=== PATIENT | female | born 1980 | race Caucasian/White ===

== ENCOUNTER 2016-10-14 15:07 | Inpatient (IN) | payer MEDICAID ==
[~2016-10-14] VITALS: Ht 165.1 cm; Wt 83.4 kg
[~2016-10-14 15:07] MED LIST: CIPR-173 PO
[2016-10-14 15:57] LABS: Basophils # (auto) 0 uL; Basophils % (auto) 0.4 % (0.0-2.0); Eosinophils # (auto) 0.1 uL; Eosinophils % (auto) 1.2 % (0.0-7.0); Hematocrit 45.2 % (36.0-46.0); Hemoglobin 14.9 g/dL (12.2-16.2); Lymphocytes # (auto) 2.6 uL; Mean Corpuscular Hemoglobin 29.5 pg (28.0-32.0); Mean Corpuscular Hgb Conc. 32.9 g/dL (32.0-36.0); Mean Corpuscular Volume 89.8 fL (80.0-100.0); Mean Platelet Volume 8.5 fL (7.4-10.4); Monocytes # (auto) 0.4 uL; Monocytes % (auto) 3.8 % (0.0-12.0); Neutrophils # (auto) 6.2 uL; Neutrophils % (auto) 66.6 % (37.0-80.0); Platelet Count (auto) 353 10^3/uL (140-450); Red Cell Distribution Width 13.1 % (11.6-16.0); White Blood Cell 9.3 10^3/uL (4.4-10.8)
[2016-10-14 16:39] LABS: Albumin 4.2 g/dL (3.4-5.0); BUN/Creatinine Ratio 17.3; Bilirubin, Total 0.4 mg/dL (0.2-1.0); Potassium 3.7 mmol/L (3.5-5.1); Total Protein 7.8 g/dL (6.4-8.2)
[2016-10-14] MEDS ORDERED: SODIUM CHLORIDE 0.9% 1,000 ML IV ONE (21:18)
[2016-10-14] MEDS ORDERED: MORPHINE SULFATE 4 MG/ML SYRG IV ONE (21:30)
[2016-10-14] MEDS ORDERED: ONDANSETRON HCL 4 MG/2 ML VIAL IV ONE (21:30)
[2016-10-14] MEDS ORDERED: NITROFURANTOIN (MONO) 100 mg CAP PO ONE (22:00)
[2016-10-14] MEDS: SODIUM CHLORIDE 0.9% 1,000 ML IV SCH (23:07)
[2016-10-14] MEDS ORDERED: HYDROmorphone HCL 2 MG/ML VL IV ONE (23:30)
[2016-10-14] MEDS: ONDANSETRON HCL 4 MG/2 ML VIAL IV PRN (23:35)
[2016-10-15] VITALS (8 sets, daily range): BP systolic 97–142; BP diastolic 57–88
[2016-10-15] MEDS: ONDANSETRON HCL 4 MG/2 ML VIAL IV PRN ×3 (01:57→22:18)
[2016-10-15] MEDS: MORPHINE SULF INJ 2 MG/ML SYRINGE 1ML IV PRN ×4 (03:44→22:18)
[2016-10-15 05:45] LABS: Basophils # (auto) 0 uL; Basophils % (auto) 0.6 % (0.0-2.0); Eosinophils # (auto) 0.1 uL; Eosinophils % (auto) 1.1 % (0.0-7.0); Hematocrit 38.3 % (36.0-46.0); Hemoglobin 12.4 g/dL (12.2-16.2); Lymphocytes % (auto) 37.5 % (10.0-50.0); Mean Corpuscular Hemoglobin 29.3 pg (28.0-32.0); Mean Corpuscular Hgb Conc. 32.5 g/dL (32.0-36.0); Mean Corpuscular Volume 90.2 fL (80.0-100.0); Mean Platelet Volume 8.7 fL (7.4-10.4); Monocytes # (auto) 0.4 uL; Monocytes % (auto) 5.5 % (0.0-12.0); Neutrophils # (auto) 4.5 uL; Neutrophils % (auto) 55.3 % (37.0-80.0); Platelet Count (auto) 278 10^3/uL (140-450); Red Cell Distribution Width 12.6 % (11.6-16.0); White Blood Cell 8.1 10^3/uL (4.4-10.8)
[2016-10-15 06:04] LABS: Albumin 3.1 g/dL (3.4-5.0); BUN/Creatinine Ratio 14.7; Calcium 7.5 mg/dL (8.5-10.1); Potassium 3.4 mmol/L (3.5-5.1)
[2016-10-15 06:07] LABS: Bilirubin, Total 0.5 mg/dL (0.2-1.0); Total Protein 5.9 g/dL (6.4-8.2)
[2016-10-15] MEDS ORDERED: DIVA250T51 PO (06:40)
[2016-10-15] MEDS ORDERED: VERA120T6 PO (06:40)
[2016-10-15] MEDS: SODIUM CHLORIDE 0.9% 1,000 ML IV SCH ×3 (07:52→23:09)
[2016-10-15] MEDS ORDERED: ONDANSETRON HCL 4 MG/2 ML VIAL ONE (08:32)
[2016-10-15] MEDS ORDERED: cefTRIAXone 1GM/50ML D5W 50 ML IV ONE (10:00)
[2016-10-15] MEDS: VALPROATE SOD 250 MG/5 ML ORAL SOLN PO SCH ×2 (10:14→22:18)
[2016-10-15] MEDS: FAMOTIDINE (10MG/ML) 2ML VL IV SCH ×2 (10:15→22:17)
[2016-10-15] MEDS: NITROFURANTOIN (MONO) 100 mg CAP PO SCH ×2 (10:15→22:18)
[2016-10-15] MEDS: VERAPAMIL HCL 120 mg ER tab PO SCH (10:59)
[2016-10-15 21:47] LABS: Urine Bilirubin Negative (Negative); Urine Blood Negative /uL (Negative); Urine Color Yellow (Yellow); Urine Glucose Normal (Normal); Urine Hyaline Cast FEW /lpf (0 - 2); Urine Ketone TRACE (Negative); Urine Nitrite Negative (Negative); Urine RBC 3 /hpf (0 - 4); Urine Squamous Epithelial Cell FEW /hpf (<5); Urine Urobilinogen Normal (Negative); Urine pH 6.5 (5.0-8.0)
[2016-10-16] MEDS: SODIUM CHLORIDE 0.9% 1,000 ML IV SCH ×3 (01:00→15:07)
[2016-10-16 05:00] VITALS: BP 106/66
[2016-10-16 06:32] LABS: Basophils # (auto) 0 uL; Basophils % (auto) 0.7 % (0.0-2.0); Eosinophils # (auto) 0.1 uL; Eosinophils % (auto) 2.3 % (0.0-7.0); Hematocrit 40.1 % (36.0-46.0); Hemoglobin 12.9 g/dL (12.2-16.2); Lymphocytes # (auto) 2.5 uL; Mean Corpuscular Hemoglobin 29.2 pg (28.0-32.0); Mean Corpuscular Hgb Conc. 32.2 g/dL (32.0-36.0); Mean Corpuscular Volume 90.6 fL (80.0-100.0); Monocytes # (auto) 0.4 uL; Monocytes % (auto) 5.9 % (0.0-12.0); Neutrophils % (auto) 49.1 % (37.0-80.0); Platelet Count (auto) 306 10^3/uL (140-450); Red Cell Distribution Width 12.7 % (11.6-16.0); White Blood Cell 6.1 10^3/uL (4.4-10.8)
[2016-10-16 06:53] LABS: Albumin 3.4 g/dL (3.4-5.0); BUN/Creatinine Ratio 9.5; Bilirubin, Total 0.4 mg/dL (0.2-1.0); Calcium 8.5 mg/dL (8.5-10.1); Potassium 3.7 mmol/L (3.5-5.1); Total Protein 6.4 g/dL (6.4-8.2)
[2016-10-16] MEDS: cefTRIAXone 1GM/50ML D5W 50 ML IV SCH (08:56)
[2016-10-16 09:00] VITALS: BP 100/57
[2016-10-16] MEDS: MORPHINE SULF INJ 2 MG/ML SYRINGE 1ML IV PRN (09:03)
[2016-10-16] MEDS: ONDANSETRON HCL 4 MG/2 ML VIAL IV PRN ×4 (09:03→22:28)
[2016-10-16] MEDS: VALPROATE SOD 250 MG/5 ML ORAL SOLN PO SCH ×2 (09:31→21:36)
[2016-10-16] MEDS: FAMOTIDINE (10MG/ML) 2ML VL IV SCH ×2 (09:31→21:36)
[2016-10-16] MEDS: NITROFURANTOIN (MONO) 100 mg CAP PO SCH ×2 (09:31→21:36)
[2016-10-16] MEDS: VERAPAMIL HCL 120 mg ER tab PO SCH (10:00)
[2016-10-16 13:00] VITALS: BP 111/73
[2016-10-16] MEDS: MORPHINE SULFATE 4 MG/ML SYRG IV PRN ×3 (14:37→22:28)
[2016-10-16] MEDS ORDERED: DOCUSATE SOD 100 MG CAP PO PRN (15:45)
[2016-10-16 17:00] VITALS: BP_SYST 115; BP_SYST 149; BP_DIAS 58; BP_DIAS 78
[2016-10-16 22:00] VITALS: BP 108/70
[2016-10-17 05:00] VITALS: BP 104/55
[2016-10-17] MEDS: ONDANSETRON HCL 4 MG/2 ML VIAL IV PRN ×3 (06:07→23:04)
[2016-10-17] MEDS: MORPHINE SULFATE 4 MG/ML SYRG IV PRN ×3 (06:08→23:05)
[2016-10-17 06:43] LABS: INR 1.06 (0.9-1.15); Partial Thromboplastin Time 27.1 sec (22.64-33.71); Prothrombin Time 10.9 sec (9.37-12.3)
[2016-10-17] MEDS: SODIUM CHLORIDE 0.9% 1,000 ML IV SCH ×3 (07:07→23:26)
[2016-10-17] MEDS ORDERED: LIDOCAINE VISCOUS 2% 15ML UD ONE (08:14)
[2016-10-17] MEDS ORDERED: SODIUM CHLORIDE LOCK 10 ML ONE (08:14)
[2016-10-17] MEDS ORDERED: diphenhdrAMINE HCL 50 MG/1 ML VL ONE (08:14)
[2016-10-17 09:54] VITALS: BP 106/57
[2016-10-17] MEDS: VERAPAMIL HCL 120 mg ER tab PO SCH (10:00)
[2016-10-17] MEDS ORDERED: SODIUM CHLORIDE 0.9% 500 ML IV ONE (10:15)
[2016-10-17] MEDS: cefTRIAXone 1GM/50ML D5W 50 ML IV SCH (10:16)
[2016-10-17] MEDS: MIDAZOLAM HCL 5 MG/ML-1ML VIAL ONE ×2 (12:07→12:10)
[2016-10-17] MEDS: fentaNYL CITRATE 100 MCG/2 ML VL ONE ×2 (12:07→12:10)
[2016-10-17 14:30] VITALS: BP 92/49
[2016-10-17] MEDS: VALPROATE SOD 250 MG/5 ML ORAL SOLN PO SCH ×2 (15:44→22:01)
[2016-10-17] MEDS: NITROFURANTOIN (MONO) 100 mg CAP PO SCH ×2 (15:44→22:01)
[2016-10-17 16:45] VITALS: BP 112/65
[2016-10-17 21:55] VITALS: BP 105/51
[2016-10-18 05:00] VITALS: BP 102/49
[2016-10-18] MEDS: MORPHINE SULFATE 4 MG/ML SYRG IV PRN (05:51)
[2016-10-18] MEDS: ONDANSETRON HCL 4 MG/2 ML VIAL IV PRN ×2 (05:51→10:15)
[2016-10-18 06:22] LABS: Basophils # (auto) 0 uL; Basophils % (auto) 0.6 % (0.0-2.0); Eosinophils # (auto) 0.1 uL; Eosinophils % (auto) 2.2 % (0.0-7.0); Hematocrit 38.4 % (36.0-46.0); Hemoglobin 12.1 g/dL (12.2-16.2); Lymphocytes # (auto) 2.8 uL; Lymphocytes % (auto) 41.9 % (10.0-50.0); Mean Corpuscular Hemoglobin 29.2 pg (28.0-32.0); Mean Corpuscular Hgb Conc. 31.6 g/dL (32.0-36.0); Mean Corpuscular Volume 92.3 fL (80.0-100.0); Monocytes # (auto) 0.4 uL; Monocytes % (auto) 6.4 % (0.0-12.0); Neutrophils # (auto) 3.3 uL; Neutrophils % (auto) 48.9 % (37.0-80.0); Platelet Count (auto) 301 10^3/uL (140-450); White Blood Cell 6.7 10^3/uL (4.4-10.8)
[2016-10-18 06:41] LABS: Potassium 4.1 mmol/L (3.5-5.1)
[2016-10-18 06:52] LABS: Albumin 2.9 g/dL (3.4-5.0); Bilirubin, Total 0.2 mg/dL (0.2-1.0); Calcium 7.8 mg/dL (8.5-10.1); Total Protein 5.8 g/dL (6.4-8.2)
[2016-10-18] MEDS: SODIUM CHLORIDE 0.9% 1,000 ML IV SCH (07:07)
[2016-10-18 08:00] VITALS: BP 132/77
[2016-10-18] MEDS ORDERED: PANTOPRAZOLE 40 MG TAB PO SCH (10:00)
[2016-10-18] MEDS: NITROFURANTOIN (MONO) 100 mg CAP PO SCH (10:13)
[2016-10-18] MEDS: VALPROATE SOD 250 MG/5 ML ORAL SOLN PO SCH (10:13)
[2016-10-18] MEDS: VERAPAMIL HCL 120 mg ER tab PO SCH (10:15)
[2016-10-18] MEDS: cefTRIAXone 1GM/50ML D5W 50 ML IV SCH (10:19)
[2016-10-18 12:00] VITALS: BP 115/74
[2016-10-18 12:21] VITALS: BP 115/74
== END 2016-10-18 13:25 | disposition home or self-care (01) | DRG 463 ==
LOC: ER 15:25 → OVERFLOW 15:26 → WEST WING 15:26
PROVIDERS: ADMIT Family Medicine; ATTEND Internal Medicine
PROC: 0DB68ZX Excision of Stomach, Via Natural or Artificial Opening Endoscopic, Diagnostic (ICD-10-PCS; principal; 2016-10-17 12:05)
DX: N30.01 Acute cystitis with hematuria (principal); K76.89 Other specified diseases of liver; R56.9 Unspecified convulsions; E44.0 Moderate protein-calorie malnutrition; N20.0 Calculus of kidney; F19.10 Other psychoactive substance abuse, uncomplicated; F12.10 Cannabis abuse, uncomplicated; E86.0 Dehydration; F17.210 Nicotine dependence, cigarettes, uncomplicated; I10 Essential (primary) hypertension; K21.9 Gastro-esophageal reflux disease without esophagitis; Z88.1 Allergy status to other antibiotic agents; Z88.0 Allergy status to penicillin; Z88.2 Allergy status to sulfonamides; Z90.89 Acquired absence of other organs; Z98.890 Other specified postprocedural states; Z82.49 Family history of ischemic heart disease and other diseases of the circulatory system; Z80.9 Family history of malignant neoplasm, unspecified
CPT/HCPCS: 36415; 43239; 71010; 74176; 80053; 81001; 82150; 83690; 84702; 85025; 85610; 85730; 96361; 96374; 96375; J0696; J2250; J2405; J3490

== ENCOUNTER 2017-04-21 12:57 | Emergency (ER) | payer MEDICAID ==
[~2017-04-21] VITALS: Ht 165.1 cm; Wt 72.6 kg
[~2017-04-21 12:57] MED LIST changes: +DIVA250T51 PO; +VERA120T6 PO
[2017-04-21 13:33] VITALS: BP 140/103
[2017-04-21] MEDS ORDERED: traMADol HCL 50 MG TAB PO ONE (13:45)
== END 2017-04-21 13:49 | disposition home or self-care (01) ==
LOC: ER 12:59
DX: K04.7 Periapical abscess without sinus (principal); I10 Essential (primary) hypertension; Z87.442 Personal history of urinary calculi; Z88.0 Allergy status to penicillin; Z88.1 Allergy status to other antibiotic agents; F17.210 Nicotine dependence, cigarettes, uncomplicated; F12.10 Cannabis abuse, uncomplicated

== ENCOUNTER 2017-11-14 08:07 | Emergency (ER) | payer MEDICAID ==
[~2017-11-14] VITALS: Ht 165.1 cm; Wt 78.0 kg
[2017-11-14 08:28] VITALS: BP 135/77
[2017-11-14] MEDS ORDERED: KETOROLAC TROMETH 60MG/2ML VIAL IM ONE (09:30)
== END 2017-11-14 09:41 | disposition home or self-care (01) ==
LOC: ER 08:07
DX: K08.89 Other specified disorders of teeth and supporting structures (principal); G89.29 Other chronic pain; I10 Essential (primary) hypertension; F17.210 Nicotine dependence, cigarettes, uncomplicated; Z87.442 Personal history of urinary calculi; Z90.49 Acquired absence of other specified parts of digestive tract; Z98.51 Tubal ligation status; Z88.0 Allergy status to penicillin; Z88.1 Allergy status to other antibiotic agents
CPT/HCPCS: 96372; 99283; J1885